=== PATIENT | male | born 1985 | race Caucasian/White ===

== ENCOUNTER → 2019-01-04 15:10 | Outpatient (CLI) | payer OTHER, SELFPAY ==
[2019-01-04 16:32] LABS: Liquefaction Semen YES (YES); PH Semen 8 (7-8); Sperm Count 52 x10^6/mL (20-150); Sperm Morphology 51 %ABNORM (0-30); Sperm Motility 85% % Motile; Volume Semen 2.5 (1.0-5.0)
== END ==
PROVIDERS: PCP Family Medicine; Visit Provider Student in an Organized Health Care Education/Training Program
DX: R86.9 Unspecified abnormal finding in specimens from male genital organs (principal)
CPT/HCPCS: 89320